=== PATIENT | female | born 1985 | race Caucasian/White ===

== ENCOUNTER 2018-07-04 09:31 | Emergency (ER) | payer OTHER ==
[~2018-07-04] VITALS: Ht 152.4 cm; Wt 81.6 kg
[~2018-07-04 09:31] MED LIST: AMOX500C PO; CYCL10TA2 PO; FLUC150T PO; LEVO1TAB PO; OMEP40CA2 PO; OXYC5TAB95 PO; PRED20TA PO
[2018-07-04 10:19] VITALS: BP 139/97
[2018-07-04] MEDS ORDERED: HYDROcodone/APAP 5/325MG 1 TAB TABLET PO ONE (10:30)
--- NOTE | 2018-07-04 10:55 | RAD ---
Examination: 3 views of the left foot HISTORY: History of pain in the left foot laterally COMPARISON: Ankle radiograph from 08/08/2014 FINDINGS: The alignment of the tarsal bones, tarsometatarsal joints, metatarsophalangeal joints, interphalangeal grossly appears unremarkable. Bony irregularity of the talus is similar to prior exam. Mild soft tissue prominence identified dorsal to the distal metatarsal region best seen on the lateral view. IMPRESSION: 1. No acute osseous findings. Bony irregularity of the talus similar to prior exam. 2. Mild soft tissue prominence identified dorsal to the distal metatarsal region best seen on the lateral view, nonspecific. Electronically signed by: Nile Thompson MD (07/04/2018 10:52 AM) [id number]
[2018-07-04] MEDS ORDERED: IBUP-1007 PO (11:03)
--- NOTE | 2018-07-04 11:07 | PHYS DOC ---
Past Medical History Past Medical History: Other Additional Past Medical Histor: MALIGNANT HYPERTHERMIA Past Surgical History: Cholecystectomy, , Tonsillectomy Additional Past Surgical Histo: L. FOOT SURGERY Alcohol Use: Occasionally Drug Use: None Adult General Chief Complaint Chief Complaint: FOOT INJURY PAIN HPI HPI Patient is a 33 year old female presenting with left lateral foot pain she woke up with this no trauma that she knows of she does have a history of chronic ankle pain secondary to arthrygosis. She did have a Achilles tendon repair couple years back. She says she has not had pain like this recently although she did have this very similar pain a few years back prior to her Achilles tendon repair she said she had multiple small tears there. No fever no trauma no other symptoms. Review of Systems Review of Systems Constitutional: Denies fever or chills [] Eyes: Denies change in visual acuity, redness, or eye pain [] Patient denies any pain above the mid harris All other systems were reviewed and found to be within normal limits, except as documented in this note. Current Medications Current Medications Current Medications Medications (Trade) Dose Ordered Sig/Mil Start Time Stop Time Status Last Admin Dose Admin Acetaminophen/ Hydrocodone Bitart (Lortab 5/325) 2 tab 1X ONCE 07/04/18 10:30 07/04/18 10:31 DC 07/04/18 10:28 2 TAB Allergies Allergies Allergies Coded Allergies Type Severity Reaction Last Updated Verified Sulfa (Sulfonamide Antibiotics) Allergy Unknown 09/10/17 Yes Physical Exam Physical Exam Constitutional: Well developed, well nourished, no acute distress, non-toxic appearance. [] HENT: Normocephalic, atraumatic, bilateral external ears normal, oropharynx moist, no oral exudates, nose normal. [] Eyes: PERRLA, EOMI, conjunctiva normal, no discharge. [] Neck: Normal range of motion, no tenderness, supple, no stridor. [] Pulmonary: Normal respiratory effort no increased work of breathing no obvious chest wall trauma Abdomen: Bowel sounds normal, soft, no tenderness, no masses, no pulsatile masses. [] Skin: Warm, dry, no erythema, no rash. [] Back: No tenderness, no CVA tenderness. [] Extremities: There is mild tenderness to palpation noted over the ASIS the fifth metatarsal no erythema no induration minimal to no swelling noted. There is some sort of chronic appearing hypoplastic ankles. Pedal pulses intact in the affected extremity sensation is intact Neurologic: Alert and oriented X 3, normal motor function, normal sensory function, no focal deficits noted. [] Psychologic: Affect normal, judgement normal, mood normal. [] Current Patient Data Vital Signs Vital Signs Date Time Temp Pulse Resp B/P (MAP) Pulse Ox O2 Delivery O2 Flow Rate FiO2 07/04/18 10:19 98.4 75 20 139/97 (111) 97 Room Air 98.4 EKG EKG [] Radiology/Procedures Radiology/Procedures [] Impressions: IMPRESSION: 1. No acute osseous findings. Bony irregularity of the talus similar to prior exam. 2. Mild soft tissue prominence identified dorsal to the distal metatarsal region best seen on the lateral view, nonspecific. Electronically signed by: Nile Thompson MD (07/04/2018 10:52 AM) [id number] Course & Med Decision Making Course & Med Decision Making Pertinent Labs and Imaging studies reviewed. (See chart for details) []33-year-old female presenting with foot/ankle pain. It appears to be mostly over the lateral fifth metatarsal no infection normal pulse x-ray was read as negative acute physical component of chronic pain but have she sprained her ankle and just didn't realize it. Prescription for Motrin was provided ice rest return precautions discussed including for no improvement or any fever. Dragon Disclaimer Yanion Disclaimer This electronic medical record was generated, in whole or in part, using a voice recognition dictation system. Departure Departure Impression: Primary Impression: Ankle pain, left Disposition: 01 HOME, SELF-CARE Condition: IMPROVED Patient Instructions: Foot Sprain-Brief Additional Instructions: it is not clear what is causing your pain. there is no evidence of infection broken bone or blood clot. please see doctor if not improving. Scripts Ibuprofen (IBUPROFEN) 600 Mg Tablet 600 MG PO PRN Q6HRS PRN for PAIN, #20 TAB take with food or milk Prov: CHERRY SANON MD 07/04/18 CHERRY SANON MD Jul 04, 2018 11:07
== END 2018-07-04 11:26 | disposition home or self-care (01) ==
LOC: ER 09:31
DX: M79.672 Pain in left foot (principal); Z98.890 Other specified postprocedural states; Z88.2 Allergy status to sulfonamides
CPT/HCPCS: 73630; 99284

== ENCOUNTER 2018-12-05 16:02 | Emergency (ER) | payer OTHER ==
[~2018-12-05] VITALS: Ht 152.4 cm; Wt 68.0 kg
[~2018-12-05 16:02] MED LIST changes: +IBUP-1007 PO; +OXYC5TAB4 PO; -OXYC5TAB95 PO
[2018-12-05 16:05] VITALS: BP 124/71
[2018-12-05 17:03] LABS: INFLUENZA A PATIENT NEGATIVE (NEGATIVE); INFLUENZA B PATIENT NEGATIVE (NEGATIVE)
[2018-12-05 17:10] LABS: MONONUCLEOSIS PATIENT NEGATIVE (NEGATIVE)
[2018-12-05 17:17] LABS: BILIRUBIN,URINE SMALL (NEG); CLARITY,URINE CLEAR; COLOR,URINE YELLOW; NITRITE,URINE NEGATIVE (NEG); PH,URINE 5.5; PROTEIN,URINE NEGATIVE (NEG-TRACE); UROBILINOGEN,URINE 0.2 mg/dL (0.2 mg/dL)
--- NOTE | 2018-12-05 17:23 | EKG ---
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
[2018-12-05 17:25] LABS: BACTERIA,URINE MODERATE /HPF (0-FEW); RBC,URINE 0 /HPF (0-2); SQUAMOUS EPITHELIAL CELL,UR MANY /LPF
[2018-12-05] MEDS ORDERED: NITR100C62 PO (17:36)
--- NOTE | 2018-12-05 17:37 | PHYS DOC ---
Past Medical History Past Medical History: Other Additional Past Medical Histor: MALIGNANT HYPERTHERMIA Past Surgical History: Cholecystectomy, , Tonsillectomy Additional Past Surgical Histo: L. FOOT SURGERY Alcohol Use: Occasionally Drug Use: Marijuana Social History Narrative: last use 3 days ago Adult General Chief Complaint Chief Complaint: SORE THROAT HPI HPI Patient is a 33 year old [f__sex] who presents with [] Review of Systems Review of Systems Constitutional: Denies fever or chills [] Eyes: Denies change in visual acuity, redness, or eye pain [] HENT: Denies nasal congestion or sore throat [] Respiratory: Denies cough or shortness of breath [] Cardiovascular: No additional information not addressed in HPI [] GI: Denies abdominal pain, nausea, vomiting, bloody stools or diarrhea [] : Denies dysuria or hematuria [] Musculoskeletal: Denies back pain or joint pain [] Integument: Denies rash or skin lesions [] Neurologic: Denies headache, focal weakness or sensory changes [] Endocrine: Denies polyuria or polydipsia [] All other systems were reviewed and found to be within normal limits, except as documented in this note. Current Medications Current Medications Current Medications Medications (Trade) Dose Ordered Sig/Mil Start Time Stop Time Status Last Admin Dose Admin Ketorolac Tromethamine (Toradol Im) 60 mg 1X ONCE 12/05/18 18:00 12/05/18 18:01 Allergies Allergies Allergies Coded Allergies Type Severity Reaction Last Updated Verified Sulfa (Sulfonamide Antibiotics) Allergy Unknown 09/10/17 Yes Physical Exam Physical Exam Constitutional: Well developed, well nourished, no acute distress, non-toxic appearance. [] HENT: Normocephalic, atraumatic, bilateral external ears normal, oropharynx moist, no oral exudates, nose normal. [] Eyes: PERRLA, EOMI, conjunctiva normal, no discharge. [] Neck: Normal range of motion, no tenderness, supple, no stridor. [] Cardiovascular:Heart rate regular rhythm, no murmur [] Lungs & Thorax: Bilateral breath sounds clear to auscultation [] Abdomen: Bowel sounds normal, soft, no tenderness, no masses, no pulsatile masses. [] Skin: Warm, dry, no erythema, no rash. [] Back: No tenderness, no CVA tenderness. [] Extremities: No tenderness, no cyanosis, no clubbing, ROM intact, no edema. [] Neurologic: Alert and oriented X 3, normal motor function, normal sensory function, no focal deficits noted. [] Psychologic: Affect normal, judgement normal, mood normal. [] Current Patient Data Vital Signs Vital Signs Date Time Temp Pulse Resp B/P (MAP) Pulse Ox O2 Delivery O2 Flow Rate FiO2 12/05/18 16:05 99.4 101 16 124/71 (88) 97 Room Air 99.4 Lab Values Laboratory Tests Test 12/05/18 16:25 12/05/18 16:30 12/05/18 16:50 12/05/18 17:05 Influenza Type A Antigen Negative (NEGATIVE) Influenza Type B Antigen Negative (NEGATIVE) Urine Collection Type Unknown Urine Color Yellow Urine Clarity Clear Urine pH 5.5 Urine Specific [place] >=1.030 Urine Protein Negative mg/dL (NEG-TRACE) Urine Glucose (UA) Negative mg/dL (NEG) Urine Ketones (Stick) Negative mg/dL (NEG) Urine Blood Negative (NEG) Urine Nitrite Negative (NEG) Urine Bilirubin Small (NEG) Urine Urobilinogen Dipstick 0.2 mg/dL (0.2 mg/dL) Urine Leukocyte Esterase Trace (NEG) Urine RBC 0 /HPF (0-2) Urine WBC 1-4 /HPF (0-4) Urine Squamous Epithelial Cells Many /LPF Urine Bacteria Moderate /HPF (0-FEW) Urine Mucus Marked /LPF Heterophil Agglutinins Negative (NEGATIVE) POC Urine HCG, Qualitative Hcg negative (Negative) EKG EKG [] Radiology/Procedures Radiology/Procedures [] Course & Med Decision Making Course & Med Decision Making Pertinent Labs and Imaging studies reviewed. (See chart for details) [] Dragon Disclaimer Dragon Disclaimer This electronic medical record was generated, in whole or in part, using a voice recognition dictation system. Departure Departure Impression: Primary Impression: UTI (urinary tract infection) Additional Impression: URI (upper respiratory infection) Disposition: 01 HOME, SELF-CARE Condition: STABLE Referrals: RENETTA MOLINA MD (PCP) Patient Instructions: Upper Respiratory Infection, Adult, Urinary Tract Infection Additional Instructions: Take the medication as directed. Increase fluids and rest. Follow-up with your primary care provider in one week for urine recheck. You may use ibuprofen or Tylenol for pain. Scripts Nitrofurantoin Monohyd/M-Cryst (MACROBID 100 MG CAPSULE) 100 Mg Capsule 1 CAP PO BID for UTI, #14 CAP Prov: JEWEL العراقي APRN 12/05/18 Problem Qualifiers JEWEL العراقي APRN Dec 05, 2018 17:37
[2018-12-05] MEDS: KETOROLAC 60 MG/2 ML VIAL. IM ONE (17:38)
== END 2018-12-05 17:51 | disposition home or self-care (01) ==
LOC: ER 16:02
DX: J06.9 Acute upper respiratory infection, unspecified (principal); N39.0 Urinary tract infection, site not specified; Z90.49 Acquired absence of other specified parts of digestive tract; Z90.89 Acquired absence of other organs; Z98.890 Other specified postprocedural states; Z88.2 Allergy status to sulfonamides
CPT/HCPCS: 81001; 81025; 86308; 87086; 87804; 87880; 93005; 96372; 99284; J1885

== ENCOUNTER → 2020-01-08 | Outpatient (CLI) | payer MEDICAID ==
[~2020-01-08] MED LIST changes: +NITR100C62 PO
--- NOTE | 2020-01-08 15:43 | RAD ---
EXAM: First Trimester OB Ultrasound INDICATION: Encounter for supervision of normal first trimester TECHNIQUE: Real-time first trimester obstetrical ultrasound was performed with permanent freeze-frame documentation. Transabdominal and endovaginal approaches were utilized. COMPARISON: None. FINDINGS: GESTATIONAL SAC: Gestational sac shape and amniotic fluid volume are within normal limits. Mean sac diameter of 0.6 cm. POLE: Not visualized not visualized CROWN RUMP LENGTH: Not visualized HEART RATE: Not visualized PLACENTA: Too early to adequately assess. MATERNAL UTERUS: Uterus measures 8.6 x 4.8 x 5.0 cm endovaginally. MATERNAL ADNEXA: Normal ovaries. Dominant follicle in the right ovary measuring 1.6 x 1.1 x 1.4 cm. The right ovary measures 2.9 x 2.0 x 3.3 cm and the left ovary measures 2.2 x 1.4 x 2.5 cm. Trace pelvic free fluid. AGE/DATES: Gestational Age by LMP: 5 weeks 5 days Gestational Age by US: 5 weeks 2 days EDC by LMP: September 04, 2020 EDC by US: September 07, 2020 IMPRESSION: Early first trimester OB ultrasound, too soon to assess viability. No pole identified currently. Recommend correlation with serial hCG measurements and follow-up ultrasound. Estimated gestational age of 5 weeks 2 days and EDC of September 07, 2020. Electronically signed by: Shorty Billings MD (01/08/2020 3:40 PM) [id number]
== END | disposition home or self-care (01) ==
LOC: US 08:57
PROVIDERS: ATTEND Obstetrics & Gynecology
DX: Z34.91 Encounter for supervision of normal pregnancy, unspecified, first trimester (principal); Z3A.01 Less than 8 weeks gestation of pregnancy
CPT/HCPCS: 76801; 76817

== ENCOUNTER → 2020-01-14 | Outpatient (CLI) | payer MEDICAID ==
--- NOTE | 2020-01-14 10:09 | RAD ---
Examination: BREAST RIGHT History: The patient reports that the referring physician palpated an abnormality involving the right breast upper inner quadrant. The patient denies being able to locate a palpable abnormality in this region. Comparison/Correlation: None Findings: Ultrasound imaging of the right upper inner quadrant was performed. Ultrasound imaging of the right axilla was performed. Benign-appearing right axillary lymph nodes are. At the right breast 1:00 position 6 cm from the nipple, there is a 0.5 cm x 0.4 cm x 0.2 cm tall well-circumscribed structure with internal echoes. No flow within it. There is no palpable abnormality upon physical examination by myself at the right upper inner quadrant at the site of concern reported by the patient. Impression: BI-RADS Category 3-probably benign. There is a solitary complicated cyst present. Six-month follow-up ultrasound to assess stability is recommended. No definite suspicious mass. Clinical management of the reported palpable abnormalities recommended. Baseline mammography was discussed with patient. The patient reports being currently . She preferred to defer screening mammographic exam until after childbirth. Electronically signed by: Yordy Petit MD (01/14/2020 10:06 AM) [id number]
== END | disposition home or self-care (01) ==
LOC: US 09:21
PROVIDERS: ATTEND Family Medicine
DX: O92.29 Other disorders of breast associated with pregnancy and the puerperium (principal); Z3A.01 Less than 8 weeks gestation of pregnancy
CPT/HCPCS: 76641

== ENCOUNTER 2020-03-14 12:42 | Emergency (ER) | payer MEDICAID ==
[~2020-03-14] VITALS: Ht 152.4 cm; Wt 61.4 kg
[2020-03-14 13:00] VITALS: BP 124/75
[2020-03-14] MEDS ORDERED: IV NORMAL SALINE 1000ML BAG 1,000 ML IV ONE (13:15)
--- NOTE | 2020-03-14 13:20 | PHYS DOC ---
Past Medical History Past Medical History: Other Additional Past Medical Histor: MALIGNANT HYPERTHERMIA Past Surgical History: Cholecystectomy, , Tonsillectomy Additional Past Surgical Histo: L. FOOT SURGERY Smoking Status: Current Every Day Smoker Alcohol Use: Occasionally Drug Use: Marijuana General Adult EDM: Chief Complaint: LOSS OF CONSCIOUSNESS HPI: HPI: Patient is a 35-year-old female who states she has had 2 near syncopal episodes over the last 12 hours or so. She states the first 1 was at about midnight last night when she was walking through her how she felt nauseous and warm all over and then went down as if she was going to pass out. She had another very similar episode this morning so she came to the emergency department to be evaluated. She denies any chest pain shortness of breath or dyspnea on exertion. She has not had any palpitations. She states this is never really happened before. She denies any headache or lateralizing neurologic weakness. [] Review of Systems: Review of Systems: Constitutional: Denies fever or chills. [] Eyes: Denies change in visual acuity. [] HENT: Denies nasal congestion or sore throat. [] Respiratory: Denies cough or shortness of breath. [] Cardiovascular: Denies chest pain or edema. [] GI: Denies abdominal pain, nausea, vomiting, bloody stools or diarrhea. [] : Denies dysuria. [] Musculoskeletal: Denies back pain or joint pain. [] Integument: Denies rash. [] Neurologic: Denies headache, focal weakness or sensory changes. [] Endocrine: Denies polyuria or polydipsia. [] Lymphatic: Denies swollen glands. [] Psychiatric: Reports anxiety [] Heart Score: Risk Factors: Risk Factors: DM, Current or recent (<one month) smoker, HTN, HLP, family history of CAD, obesity. Risk Scores: Score 0 - 3: 2.5% MACE over next 6 weeks - Discharge Home Score 4 - 6: 20.3% MACE over next 6 weeks - Admit for Clinical Observation Score 7 - 10: 72.7% MACE over next 6 weeks - Early Invasive Strategies Current Medications: Current Medications Medications (Trade) Dose Ordered Sig/Mil Start Time Stop Time Status Last Admin Dose Admin Sodium Chloride 1,000 ml @ 1,000 mls/hr 1X ONCE 03/14/20 13:15 03/14/20 14:14 UNV Allergies: Allergies: Allergies Coded Allergies Type Severity Reaction Last Updated Verified Sulfa (Sulfonamide Antibiotics) Allergy Unknown 09/10/17 Yes Physical Exam: PE: Constitutional: Well developed, well nourished, no acute distress, non-toxic appearance. [] HENT: Normocephalic, atraumatic, bilateral external ears normal, oropharynx moist, no oral exudates, nose normal. [] Eyes: PERRLA, EOMI, conjunctiva normal, no discharge. [] Neck: Normal range of motion, no tenderness, supple, no stridor. [] Cardiovascular:Heart rate regular rhythm, no murmur [] Lungs & Thorax: Bilateral breath sounds clear to auscultation [] Abdomen: Bowel sounds normal, soft, no tenderness, no masses, no pulsatile ma sses. [] Skin: Warm, dry, no erythema, no rash. [] Back: No tenderness, no CVA tenderness. [] Extremities: No tenderness, no cyanosis, no clubbing, ROM intact, no edema. [] Neurologic: Alert and oriented X 3, normal motor function, normal sensory function, no focal deficits noted. [] Psychologic: Appears anxious [] Current Patient Data: Labs: Laboratory Tests Test 03/14/20 13:04 POC Urine HCG, Qualitative Hcg positive (Negative) EKG: EKG: [EKG: Normal sinus rhythm rate of [address]-T changes] Radiology/Procedures: Radiology/Procedures: [] Course & Med Decision Making: Course & Med Decision Making Pertinent Labs and Imaging studies reviewed. (See chart for details) [] Orthostatic blood pressures are normal Dragon Disclaimer: Zoe Disclaimer: This electronic medical record was generated, in whole or in part, using a voice recognition dictation system. Departure Departure Impression: Primary Impression: Urinary tract infection Qualified Codes: N30.00 - Acute cystitis without hematuria Additional Impression: Near syncope Disposition: 01 HOME, SELF-CARE Condition: STABLE Referrals: RENETTA MOLINA MD (PCP) Patient Instructions: Near-Syncope, Urinary Tract Infection Additional Instructions: Take medication as directed. Return to the emergency department with any new or concerning symptoms Scripts Nitrofurantoin Monohyd/M-Cryst (MACROBID 100 MG CAPSULE) 100 Mg Capsule 1 CAP PO BID for UTI, #10 CAP Prov: FREDA CAMPOS DO 03/14/20 FREDA CAMPOS DO March 14, 2020 13:20
[2020-03-14 13:54] LABS: CLARITY,URINE CLOUDY; COLOR,URINE YELLOW
[2020-03-14 13:55] LABS: BILIRUBIN,URINE SMALL (NEG); NITRITE,URINE NEGATIVE (NEG); PROTEIN,URINE 30 mg/dL (NEG-TRACE)
[2020-03-14 13:56] LABS: SQUAMOUS EPITHELIAL CELL,UR MOD /LPF
[2020-03-14 13:56] LABS: BASO # 0.1 x10^3/uL (0.0-0.2); BASO % 0 % (0-3); EOS # 0.1 x10^3/uL (0.0-0.7); EOS % 1 % (0-3); HEMATOCRIT 41.4 % (36.0-47.0); HEMOGLOBIN 14.3 g/dL (12.0-15.5); LYMPH # 2.8 x10^3/uL (1.0-4.8); LYMPH % 18 % (24-48); MEAN CORPUSCULAR HEMOGLOBIN 31 pg (25-35); MEAN CORPUSCULAR HGB CONC 35 g/dL (31-37); MEAN CORPUSCULAR VOLUME 90 fL (79-100); MONO # 0.6 x10^3/uL (0.0-1.1); MONO % 4 % (0-9); NEUT # 12.3 x10^3/uL (1.8-7.7); NEUT % 77 % (31-73); PLATELET COUNT 281 x10^3/uL (140-400); RED BLOOD COUNT 4.58 x10^6/uL (3.50-5.40); RED CELL DISTRIBUTION WIDTH 12.9 % (11.5-14.5); WHITE BLOOD COUNT 15.9 x10^3/uL (4.0-11.0)
[2020-03-14 13:57] LABS: BACTERIA,URINE FEW /HPF (0-FEW)
[2020-03-14 13:59] LABS: BARBITURATES NEG (NEG); BENZODIAZEPINES NEG (NEG); CANNABINOIDS POS (NEG); COCAINE NEG (NEG); METHADONE NEG (NEG); OPIATES NEG (NEG); PHENCYCLIDINE NEG (NEG)
[2020-03-14 14:05] LABS: AMPHETAMINE/METHAMPHETAMINE NEG (NEG)
[2020-03-14 14:09] LABS: CALCIUM 8.7 mg/dL (8.5-10.1); CREATININE 0.7 mg/dL (0.6-1.0); GFR 94.2; POTASSIUM 3.6 mmol/L (3.5-5.1)
[2020-03-14 14:16] LABS: ALBUMIN 3.5 g/dL (3.4-5.0); ALBUMIN/GLOBULIN RATIO 0.8 (1.0-1.7); TOTAL BILIRUBIN 0.3 mg/dL (0.2-1.0); TOTAL PROTEIN 7.9 g/dL (6.4-8.2)
[2020-03-14] MEDS ORDERED: NITR100C62 PO (14:20)
--- NOTE | 2020-03-15 07:01 | EKG ---
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
== END 2020-03-14 14:30 | disposition home or self-care (01) ==
LOC: ER 12:42
DX: O99.331 Smoking (tobacco) complicating pregnancy, first trimester (principal); O23.41 Unspecified infection of urinary tract in pregnancy, first trimester; R55 Syncope and collapse; R11.0 Nausea; F17.200 Nicotine dependence, unspecified, uncomplicated; F12.90 Cannabis use, unspecified, uncomplicated; Z88.2 Allergy status to sulfonamides; Z98.890 Other specified postprocedural states; Z90.49 Acquired absence of other specified parts of digestive tract
CPT/HCPCS: 36415; 80053; 80307; 81001; 81025; 83735; 84443; 85025; 87086; 93005; 96360; 99284; G0480; J7030

== ENCOUNTER → 2020-05-04 | Outpatient (CLI) | payer MEDICAID ==
--- NOTE | 2020-05-04 17:37 | RAD ---
OB ULTRASOUND, > 14 WEEKS Clinical Indication: ADVANCED MATERNAL AGE; SECOND TRIMESTER US / Spl. Instructions: / History: Comparison: Obstetric ultrasound, January 08, 2020. Technique: Multiple grayscale images, color Doppler, and M-mode images of the uterus are obtained. Findings: There is a single intrauterine gestation in variable presentation. The placenta is posterior in location without evidence of placenta previa. The amount of amniotic fluid appears appropriate. Amniotic fluid index is 11.4 cm. Cervical length is 4.2 cm. Biometrical data: BPD = 4.9 cm for 20 weeks 5 days. HC = 18.7 cm for 21 weeks 0 days. AC = 17 cm for 22 weeks 0 days. FL = 3.9 cm for 22 weeks 4 days. HC/AC ratio = 1.10. Overall, the estimated sonographic gestational age is 21 weeks and 4 days for an estimated date of delivery of September 10, 2020. The estimated date of delivery provided by the last menstrual period is September 04, 2020. Estimated weight is 471 +/- 70 grams. A 4 chamber heart is identified with positive cardiac activity. The estimated heart rate is 160 beats per minute. Bilateral lower extremities are identified. Upper extremities are incompletely visualized. There is a three-vessel cord with cord insertion visualized. stomach and urinary bladder are identified. Both kidneys are partially seen. The visualized spine and brain are unremarkable. The face is incompletely visualized. No obvious anatomic abnormalities are identified. Impression: Single live intrauterine gestation with estimated sonographic gestational age of 21 weeks and 4 days. Electronically signed by: Pal Hahn MD (05/04/2020 5:34 PM) [id number]
== END | disposition home or self-care (01) ==
LOC: US 11:55
PROVIDERS: ATTEND Obstetrics & Gynecology
DX: O09.522 Supervision of elderly multigravida, second trimester (principal); Z3A.21 21 weeks gestation of pregnancy
CPT/HCPCS: 76805

== ENCOUNTER 2020-06-06 07:14 | Observation (INO) | payer MEDICAID ==
[2020-06-06] MEDS ORDERED: IV RINGERS,LACTATED 1000ML 1,000 ML IV SCH (07:37)
[2020-06-06 09:05] LABS: BILIRUBIN,URINE NEGATIVE (NEG); CLARITY,URINE CLEAR; COLOR,URINE YELLOW; NITRITE,URINE NEGATIVE (NEG); PROTEIN,URINE NEGATIVE (NEG-TRACE); UROBILINOGEN,URINE 0.2 mg/dL (0.2 mg/dL)
[2020-06-06 09:16] LABS: SQUAMOUS EPITHELIAL CELL,UR MOD /LPF
[2020-06-06 09:17] LABS: BACTERIA,URINE FEW /HPF (0-FEW); RBC,URINE 0 /HPF (0-2); WBC,URINE 0 /HPF (0-4)
== END 2020-06-06 11:10 | disposition home or self-care (01) ==
LOC: 3 SO LND 07:14
PROVIDERS: ADMIT Obstetrics & Gynecology; ATTEND Obstetrics & Gynecology
DX: O62.9 Abnormality of forces of labor, unspecified (principal); O21.2 Late vomiting of pregnancy; O23.42 Unspecified infection of urinary tract in pregnancy, second trimester; R10.9 Unspecified abdominal pain; Z88.2 Allergy status to sulfonamides; Z3A.26 26 weeks gestation of pregnancy
CPT/HCPCS: 81001; G0378; G0379; J7120

== ENCOUNTER 2020-06-30 22:45 | Observation (INO) | payer MEDICAID ==
[2020-06-30] MEDS ORDERED: ACETAMINOPHEN 325 MG TABLET. PO PRN (23:00)
[2020-06-30] MEDS ORDERED: IV RINGERS,LACTATED 1000ML 1,000 ML IV PRN (23:00)
[2020-06-30] MEDS ORDERED: MAG HYDROX/ALUMINUM HYD/SIMETH 30 ML ORAL.SUSP PO PRN (23:00)
[2020-06-30 23:07] LABS: BILIRUBIN,URINE NEGATIVE (NEG); CLARITY,URINE CLEAR; NITRITE,URINE NEGATIVE (NEG); PROTEIN,URINE NEGATIVE (NEG-TRACE); UROBILINOGEN,URINE 0.2 mg/dL (0.2 mg/dL)
[2020-06-30 23:12] LABS: BARBITURATES NEG (NEG); BENZODIAZEPINES NEG (NEG); CANNABINOIDS POS (NEG); COCAINE NEG (NEG); METHADONE NEG (NEG); OPIATES NEG (NEG); PHENCYCLIDINE NEG (NEG)
[2020-06-30 23:14] LABS: AMPHETAMINE/METHAMPHETAMINE NEG (NEG)
[2020-06-30] MEDS ORDERED: ONDANSETRON PF 4 MG/2 ML VIAL. IVP PRN (23:15)
[2020-06-30 23:19] LABS: COLOR,URINE STRAW
[2020-06-30 23:20] LABS: BACTERIA,URINE FEW /HPF (0-FEW); RBC,URINE 0 /HPF (0-2); SQUAMOUS EPITHELIAL CELL,UR MOD /LPF; WBC,URINE RARE /HPF (0-4)
[2020-07-01 00:40] VITALS: BP 114/66
[2020-07-01] MEDS ORDERED: TERBUTALINE 1 MG/ML VIAL. SQ ONE (01:00)
== END 2020-07-01 01:35 | disposition home or self-care (01) ==
LOC: 3 SO LND 22:45
PROVIDERS: ADMIT Obstetrics & Gynecology; ATTEND Obstetrics & Gynecology
DX: O62.9 Abnormality of forces of labor, unspecified (principal); O21.2 Late vomiting of pregnancy; Z3A.30 30 weeks gestation of pregnancy; Z79.899 Other long term (current) drug therapy
CPT/HCPCS: 80307; 81001; 96361; 96372; 96374; G0378; G0379; J2405; J3105; J7120

== ENCOUNTER → 2020-08-27 | Outpatient (CLI) | payer MEDICAID | LOC: SURGPAT 15:12 | PROVIDERS: ATTEND Obstetrics & Gynecology | DX: Z01.812 Encounter for preprocedural laboratory examination (principal); Z20.828 Contact with and (suspected) exposure to other viral communicable diseases | CPT/HCPCS: U0003 ==

== ENCOUNTER 2020-09-01 09:08 | Inpatient (IN) | payer MEDICAID ==
[~2020-09-01] VITALS: Ht 152.4 cm; Wt 64.0 kg
[2020-09-01 09:40] VITALS: BP 129/81
[2020-09-01] MEDS ORDERED: TERBUTALINE 1 MG/ML VIAL. SQ PRN (10:15)
[2020-09-01] MEDS ORDERED: OXYTOCIN 30 UNIT/500 ML PREMIX 500 ML IV PRN ×3 (10:15→13:00)
[2020-09-01] MEDS ORDERED: IBUPROFEN 400 MG TABLET. PO PRN (10:15)
[2020-09-01] MEDS ORDERED: CITRIC ACID/SODIUM CITRATE 30 ML SOLUTION. PO ONE (10:15)
[2020-09-01] MEDS ORDERED: LIDOCAINE 1% PF 30 ML VIAL. INJ PRN (10:15)
[2020-09-01] MEDS ORDERED: 0.9 % SODIUM CHLORIDE 10 ML DISP.SYRIN. IV PRN ×2 (10:15→13:00)
--- NOTE | 2020-09-01 10:21 | PDOC1 ---
[employer] H&P Date of Admission: Date of Admission: Sep 01, 2020 at 09:21 History of Present Illness: EDC: 09/05/20 LMP: 11/30/19 35y @ 39.3 by L=8 presents for scheduled C/S. The pt has had a relatively uncomplicated . PMH: Denies PSH: club foot surgery bilateral, tonsillectomy, L/S cholecystectomy, section x 2, bilateral Achilles tendon lengthening 2014 Meds: PNV All: Sulfa (Unknown), Inhaled Anesthesia (Malignant Hyperthermia) OBHx: 2 x TC/S SH: no tob, no EtOH FH: noncontributory Allergies: Coded Allergies: Sulfa (Sulfonamide Antibiotics) (Verified Allergy, Intermediate, 06/30/20) Physical Exam: Vital Signs: FHT: 130s +acels/no decels/mLTV [place]: quiet PE: GENERAL: No apparent distress. Alert and oriented. HEENT: Head normocephalic, atraumatic. NECK: Supple LUNGS: Clear to auscultation. HEART: RRR, S1, S2 present, pulses intact ABDOMEN: Soft, positive bowel sounds. EXTREMITIES: No cyanosis or edema. NEUROLOGIC: Normal speech, normal tone PSYCHIATRIC: Normal affect, normal mood. SKIN: No ulceration. Assessment & Plan: A/P 35y @ 39.3 by L=8 1.) AMA - Panorama low risk 2.) Prev C/S x 2 3.) Breast mass - BI-RADS, repeat u/s and mammo after delivery 4.) Tob use - discussed cessation 5.) Fetus cat I FHT 6.) Girl - Jerri 7.) TDAP given 06/16/20 8.) GERD 9.) GBS neg JUAN VALERIO MD Sep 01, 2020 10:21
[2020-09-01 10:29] LABS: BASO # 0.1 x10^3/uL (0.0-0.2); BASO % 0 % (0-3); EOS # 0.3 x10^3/uL (0.0-0.7); EOS % 2 % (0-3); HEMATOCRIT 33.7 % (36.0-47.0); HEMOGLOBIN 11.7 g/dL (12.0-15.5); LYMPH # 4.7 x10^3/uL (1.0-4.8); LYMPH % 31 % (24-48); MEAN CORPUSCULAR HEMOGLOBIN 31 pg (25-35); MEAN CORPUSCULAR HGB CONC 35 g/dL (31-37); MEAN CORPUSCULAR VOLUME 90 fL (79-100); MONO % 6 % (0-9); NEUT # 9.4 x10^3/uL (1.8-7.7); NEUT % 61 % (31-73); PLATELET COUNT 263 x10^3/uL (140-400); RED BLOOD COUNT 3.74 x10^6/uL (3.50-5.40); RED CELL DISTRIBUTION WIDTH 13.2 % (11.5-14.5); WHITE BLOOD COUNT 15.4 x10^3/uL (4.0-11.0)
[2020-09-01 10:31] LABS: BILIRUBIN,URINE NEGATIVE (NEG); CLARITY,URINE CLOUDY; COLOR,URINE YELLOW; NITRITE,URINE NEGATIVE (NEG); PROTEIN,URINE NEGATIVE (NEG-TRACE); UROBILINOGEN,URINE 0.2 mg/dL (0.2 mg/dL)
[2020-09-01 10:41] LABS: BACTERIA,URINE MODERATE /HPF (0-FEW); RBC,URINE OCC /HPF (0-2)
[2020-09-01] MEDS ORDERED: OXYTOCIN 10 UNIT/ML VIAL. ONE ×2 (11:27→12:50)
[2020-09-01] MEDS ORDERED: PHENYLEPHRINE in 0.9% NACL PF 1 MG/10 ML SYRINGE. IV ONE (11:27)
[2020-09-01] MEDS ORDERED: FAMOTIDINE 20 MG/2 ML VIAL ONE (11:27)
[2020-09-01] MEDS ORDERED: METOCLOPRAMIDE HCL 10 MG/2 ML VIAL. ONE (11:27)
[2020-09-01] MEDS ORDERED: ePHEDrine PF IN SALINE 50 MG/10 ML SYRINGE. IV ONE (11:27)
[2020-09-01] MEDS ORDERED: ONDANSETRON PF 4 MG/2 ML VIAL. ONE (11:28)
[2020-09-01] MEDS ORDERED: fentaNYL PF VIAL 100 MCG/2 ML VIAL ONE (11:28)
[2020-09-01] MEDS ORDERED: MORPHINE PF 10 MG/10 ML AMPUL. ONE (11:28)
[2020-09-01] MEDS: IV RINGERS,LACTATED 1000ML 1,000 ML IV SCH ×3 (11:36→22:01)
[2020-09-01] MEDS ORDERED: MMR per PROTOCOL. MC PRN (13:00)
[2020-09-01] MEDS ORDERED: BENZOCAINE 20% TOPICAL AEROSOL SPRAY 57GM CAN. TP PRN (13:00)
[2020-09-01] MEDS ORDERED: ACETAMINOPHEN 325 MG TABLET. PO PRN (13:00)
[2020-09-01] MEDS ORDERED: TDaP (Adacel) per PROTOCOL. MC PRN (13:00)
[2020-09-01] MEDS ORDERED: diphenhydrAMINE ORAL ELIXIR 12.5 MG/5 ML ML PO PRN (13:00)
--- NOTE | 2020-09-01 13:20 | PDOC4 ---
OPERATIVE NOTE: PreOp Dx: 1.) IUP @ 39.3 by L=8, 2.) Prev C/S x 2, 3.) AMA - Panorama low risk, 4.) Tob use, 5.) GERD PostOp Dx: same, 6.) breech Procedure: RLTCS Surgeon: Norma Valerio Anesthesia: Spinal EBL: 700 cc Fluids: 1000 cc UOP: 200 cc Complications: None Findings: viable female delivered at 1216. Wt 6lb 10oz. APGARS 8/9. Nml tubes and ovaries. Path: Cord blood, placenta JUAN VALERIO MD Sep 01, 2020 13:20
[2020-09-01] MEDS: KETOROLAC 30 MG/ML VIAL. IV PRN ×2 (13:50→22:02)
--- NOTE | 2020-09-01 13:57 | OP ---
DATE OF SURGERY: 09/01/2020 PREOPERATIVE DIAGNOSES: 1. Intrauterine at 39 weeks and 3 days by LMP, equal to 8-week ultrasound. 2. Previous section x 2. 3. Advanced maternal age with low risk panorama. 4. Tobacco use. 5. Gastroesophageal reflux disease. POSTOPERATIVE DIAGNOSES: 1. Intrauterine at 39 weeks and 3 days by LMP, equal to 8-week ultrasound. 2. Previous section x 2. 3. Advanced maternal age with low risk panorama. 4. Tobacco use. 5. Gastroesophageal reflux disease. 6. Breech. PROCEDURE: Repeat low transverse . SURGEON: Sharif Valerio MD ANESTHESIA: Spinal. ESTIMATED BLOOD LOSS: 700 mL. FLUIDS: 1000 mL. URINE OUTPUT: 200 mL. COMPLICATIONS: None. FINDINGS: Viable female delivered at 12:16, weighing 6 pounds 10 ounces with Apgars of 8 and 9. Normal tubes and ovaries noted. PATHOLOGY: Cord blood and placenta. DESCRIPTION OF PROCEDURE: The patient was taken to the operating room, where spinal anesthesia was placed without difficulty. The patient was prepped and draped in normal sterile fashion with a left lateral tilt. A Pfannenstiel skin incision was made through her previous incision and carried down to underlying layer of fascia. The fascia was then nicked in the midline. The fascial incision was then extended laterally with Negro scissors. Superior aspect of the fascial incision was then grasped with Arlene clamps, elevated and underlying rectus muscle was dissected off with the scalpel. Attention was then turned to the inferior aspect of the fascial incision, which was again grasped with Arlene clamps, elevated and the underlying rectus muscle was dissected off with Negro scissors. There was a diastasis noted where the rectus muscle on the left reach the midline, but the rectus muscle on the right was approximately 3 cm from the midline. This made identifying the peritoneum easily. The peritoneum was grasped with 2 hemostats and tented up. Metzenbaum scissors were used to enter the peritoneal cavity sharply. Digital examination of the peritoneal cavity revealed some omental adhesions, just above the peritoneal incision, but nothing significant below. At that point, the peritoneal incision was then extended superiorly and inferiorly with good visualization of the bladder with traction and countertraction. At that point, the Arthur ring was then placed into the abdomen to gain better visualization of the lower uterine segment. A bladder flap was then created with Metzenbaum scissors. The lower uterine segment was incised in transverse fashion with the scalpel. The incision was then extended with traction and countertraction. At that point, the infant's feet were then felt. They were then brought through the hysterotomy and delivered. At that point, the was then rotated to sacrum anterior. The infant was then delivered to the level of the scapula. At that point, the left arm was swept medially and delivered followed by the right arm, which was swept medially and delivered. At that point, the head was then flexed with the Mraahpukk-Dncowfl-Ksen maneuver and delivered. The cord was double clamped and cut, and was handed over to waiting coal grader. The placenta was then removed manually and the uterus was cleared of all clots and debris. Uterine incision was then repaired with #1 chromic in a running locked fashion. A second layer of the same suture was used to imbricate. At that point, the gutters were copiously irrigated and cleared of all clots and debris. The peritoneum was then reapproximated with 2-0 Vicryl in a running fashion. The muscle was then reapproximated with 2-0 Vicryl in a running fashion. The fascia was then closed with 0 Vicryl in a running fashion. The skin was then closed with 3-0 Monocryl in a subcuticular manner. The patient tolerated the procedure well. Sponge, laps, and needles were correct x 3. Two grams of Ancef were given prior to the incision. The patient tolerated the procedure well and was taken to the recovery room in stable condition. SHARIF VALERIO MD DR: ANTHONY/sonja JOB#: [id number] / [id number] NISH
[2020-09-01] MEDS ORDERED: PREN-48 PO (15:02)
[2020-09-01 16:20] VITALS: BP 119/66
[2020-09-01 17:00] VITALS: BP 118/67
[2020-09-01 17:25] VITALS: BP 122/72
[2020-09-01 20:00] VITALS: BP 119/62
[2020-09-02 00:50] VITALS: BP 132/59
[2020-09-02 04:00] VITALS: BP 121/49
[2020-09-02] MEDS: KETOROLAC 30 MG/ML VIAL. IV PRN (05:42)
[2020-09-02 07:38] LABS: HEMOGLOBIN 8.6 g/dL (12.0-15.5); RED BLOOD COUNT 2.79 x10^6/uL (3.50-5.40); WHITE BLOOD COUNT 15.4 x10^3/uL (4.0-11.0)
--- NOTE | 2020-09-02 08:24 | PDOC ---
OFFSET PRESS ASSISTANT PROGRESS NOTE Date of Service: DATE: 09/02/20 TIME: 08:23 Subjective: Pt with good pain control. Jabier PO. Voiding. Minimal lochia Objective: Vital Signs: Vital Signs Date Time Temp Pulse Resp B/P (MAP) Pulse Ox O2 Delivery O2 Flow Rate FiO2 09/01/20 09:40 98.3 67 18 129/81 (97) 98 Room Air 98.3 Vital Signs Date Time Temp Pulse Resp B/P (MAP) Pulse Ox O2 Delivery O2 Flow Rate FiO2 09/02/20 04:00 98.9 53 18 121/49 (73) 100 Room Air 98.9 Labs: Laboratory Tests Test 09/01/20 09:32 09/01/20 09:44 09/02/20 07:05 Urine Collection Type Unknown Urine Color Yellow Urine Clarity Cloudy Urine pH 7.0 (<5.0-8.0) Urine Specific [place] 1.015 (1.000-1.030) Urine Protein Negative mg/dL (NEG-TRACE) Urine Glucose (UA) Negative mg/dL (NEG) Urine Ketones (Stick) Negative mg/dL (NEG) Urine Blood Negative (NEG) Urine Nitrite Negative (NEG) Urine Bilirubin Negative (NEG) Urine Urobilinogen Dipstick 0.2 mg/dL (0.2 mg/dL) Urine Leukocyte Esterase Negative (NEG) Urine RBC Occ /HPF (0-2) Urine WBC 5-10 /HPF (0-4) Urine Squamous Epithelial Cells Many /LPF Urine Bacteria Moderate /HPF (0-FEW) White Blood Count 15.4 x10^3/uL (4.0-11.0) H 15.4 x10^3/uL (4.0-11.0) H Red Blood Count 3.74 x10^6/uL (3.50-5.40) 2.79 x10^6/uL (3.50-5.40) L Hemoglobin 11.7 g/dL (12.0-15.5) L 8.6 g/dL (12.0-15.5) L Hematocrit 33.7 % (36.0-47.0) L 25.0 % (36.0-47.0) L Mean Corpuscular Volume 90 fL (79-100) 90 fL (79-100) Mean Corpuscular Hemoglobin 31 pg (25-35) 31 pg (25-35) Mean Corpuscular Hemoglobin Concent 35 g/dL (31-37) 34 g/dL (31-37) Red Cell Distribution Width 13.2 % (11.5-14.5) 13.0 % (11.5-14.5) Platelet Count 263 x10^3/uL (140-400) 198 x10^3/uL (140-400) Neutrophils (%) (Auto) 61 % (31-73) Lymphocytes (%) (Auto) 31 % (24-48) Monocytes (%) (Auto) 6 % (0-9) Eosinophils (%) (Auto) 2 % (0-3) Basophils (%) (Auto) 0 % (0-3) Neutrophils # (Auto) 9.4 x10^3/uL (1.8-7.7) H Lymphocytes # (Auto) 4.7 x10^3/uL (1.0-4.8) Monocytes # (Auto) 1.0 x10^3/uL (0.0-1.1) Eosinophils # (Auto) 0.3 x10^3/uL (0.0-0.7) Basophils # (Auto) 0.1 x10^3/uL (0.0-0.2) Laboratory Tests 09/01/20 09:44 09/02/20 07:05 Laboratory Tests 09/02/20 07:05 Physical Exam: GENERAL: No apparent distress. Alert and oriented. HEENT: Head normocephalic, atraumatic. NECK: Supple LUNGS: Clear to auscultation. HEART: RRR, S1, S2 present, pulses intact ABDOMEN: Soft, positive bowel sounds. EXTREMITIES: No cyanosis or edema. NEUROLOGIC: Normal speech, normal tone PSYCHIATRIC: Normal affect, normal mood. SKIN: No ulceration. FFNT below umb Inc: dressing dry No C/C/E Assessment & Plan: A/P 35y POD #1 s/p RLTCS 1.) PO doing well 2.) Anemia Hgb 11.7 -> 8.6, on Fe 3.) Breast mass - BI-RADS, repeat u/s and mammo after delivery 4.) Tob use - discussed cessation 5.) TDAP given 06/16/20 6.) GERD 7.) Cont PO care JUAN VALERIO MD Sep 02, 2020 08:24
[2020-09-02] MEDS ORDERED: PRENATAL MULTIVITAMIN TABLET. PO SCH (09:00)
[2020-09-02] MEDS: MULTIVITAMIN with MINERAL TABLET. PO SCH (10:19)
[2020-09-02] MEDS: DOCUSATE SODIUM 100 MG CAPSULE. PO PRN ×2 (10:19→20:42)
[2020-09-02] MEDS: FERROUS SULFATE 325 MG TABLET. PO SCH ×2 (10:20→16:25)
[2020-09-02] MEDS: oxyCODONE/APAP 5/325 1 TAB TABLET PO PRN ×3 (10:21→20:41)
[2020-09-02 10:30] VITALS: BP 152/72
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
[2020-09-02] MEDS ORDERED: ONDANSETRON PF 4 MG/2 ML VIAL. IVP PRN (11:15)
[2020-09-02] MEDS ORDERED: SIMETHICONE 80 MG TAB.CHEW PO PRN (11:15)
[2020-09-02] MEDS ORDERED: ONDANSETRON ODT 4 MG TAB.RAPDIS. PO PRN (11:15)
[2020-09-02 18:25] VITALS: BP 125/66
[2020-09-02] MEDS: IBUPROFEN 400 MG TABLET. PO PRN (20:42)
[2020-09-02 22:17] VITALS: BP 139/84
[2020-09-03 00:59] VITALS: BP 122/59
[2020-09-03 04:51] VITALS: BP 144/80
[2020-09-03] MEDS: oxyCODONE/APAP 5/325 1 TAB TABLET PO PRN ×2 (04:59→09:03)
[2020-09-03] MEDS: IBUPROFEN 400 MG TABLET. PO PRN ×2 (05:02→14:06)
[2020-09-03] MEDS: MULTIVITAMIN with MINERAL TABLET. PO SCH (08:52)
[2020-09-03] MEDS: FERROUS SULFATE 325 MG TABLET. PO SCH (08:52)
--- NOTE | 2020-09-03 10:36 | PDOC ---
HYDROMETALLURGICAL ENGINEER PROGRESS NOTE Date of Service: DATE: 09/03/20 TIME: 10:35 Subjective: Pt with good pain control. Jabier PO. Voiding. Minimal lochia. Denies WATT, changes in vision, or abd pain Objective: Vital Signs: Vital Signs Date Time Temp Pulse Resp B/P (MAP) Pulse Ox O2 Delivery O2 Flow Rate FiO2 09/02/20 10:21 18 Room Air 09/02/20 10:30 99.3 61 152/72 (98) 100 99.3 Vital Signs Date Time Temp Pulse Resp B/P (MAP) Pulse Ox O2 Delivery O2 Flow Rate FiO2 09/03/20 09:03 18 Room Air 09/03/20 04:51 98.3 76 144/80 (101) 99 98.3 Physical Exam: GENERAL: No apparent distress. Alert and oriented. HEENT: Head normocephalic, atraumatic. NECK: Supple LUNGS: Clear to auscultation. HEART: RRR, S1, S2 present, pulses intact ABDOMEN: Soft, positive bowel sounds. EXTREMITIES: No cyanosis or edema. NEUROLOGIC: Normal speech, normal tone PSYCHIATRIC: Normal affect, normal mood. SKIN: No ulceration. FFNT [facility] No C/C/E Inc: C/D/I Assessment & Plan: A/P 35y POD #2 s/p RLTCS 1.) PO doing well 2.) Anemia Hgb 11.7 -> 8.6, on Fe 3.) A couple elevated BPs no s/s of preeclampsia 4.) Breast mass - BI-RADS, repeat u/s and mammo after delivery 5.) Tob use - discussed cessation 6.) TDAP given 06/16/20 7.) GERD 8.) D/C home JUAN VALERIO MD Sep 03, 2020 10:36
[2020-09-03] MEDS ORDERED: OXYC1TAB15 PO (10:39)
[2020-09-03] MEDS ORDERED: DOCU-109 PO (10:39)
[2020-09-03] MEDS ORDERED: IBUP-1060 PO (10:39)
[2020-09-03] MEDS ORDERED: FERR325T14 PO (10:39)
--- NOTE | 2020-09-03 10:57 | DS ---
DATE OF DISCHARGE: 09/03/2020 ADMISSION DIAGNOSES: 1. Intrauterine at 39 weeks and 3 days by LMP equal to 8-week ultrasound. 2. Previous section x 2. 3. Advanced maternal age. 4. Breast mass. 5. Tobacco use. 6. Gastroesophageal reflux disease. 7. GBS negative. DISCHARGE DIAGNOSES: 1. Intrauterine at 39 weeks and 3 days by LMP equal to 8-week ultrasound. 2. Previous section x 2. 3. Advanced maternal age. 4. Breast mass. 5. Tobacco use. 6. Gastroesophageal reflux disease. 7. GBS negative. PROCEDURE: Repeat lower transverse . BRIEF HOSPITAL COURSE: The patient is a 35-year-old 3, para 2-0-0-2, who presented to Labor and Delivery at 39 weeks and 3 days by LMP equal to 8-week ultrasound for a scheduled . The patient had a relatively uncomplicated . The patient underwent said procedure on 09/01/2020. By postoperative day #2, the patient was doing well and desired discharge home. Of note, the patient's hemoglobin on admission was found to be 11.7 and on postoperative day #1 was found to be 8.6. The patient remained without any signs or symptoms of anemia. DISCHARGE INSTRUCTIONS: The patient was told not to lift anything greater than 20 pounds, have pelvic rest for 6 weeks, not to drive on narcotics. The patient was to call if she had fevers, chills, nausea, vomiting, abdominal pain or any additional questions or concerns. FOLLOWUP APPOINTMENT: The patient was to follow up on 09/15/2020 at 1:30 p.m. for an incision check. DISCHARGE MEDICATIONS: The patient was given a prescription for Percocet 5, 10 pills, Motrin 800 mg 30 pills, ferrous sulfate 325 mg 30 pills and Colace 100 mg 30 pills. JUAN VALERIO MD DR: ANTHONY/sonja JOB#: [id number] / [id number]
[2020-09-03 11:08] VITALS: BP 136/55
--- NOTE | 2020-09-03 13:35 | NUR ---
Discharge instructions given to pt. Pt verbalized understanding. Pt discharged home.
[2020-09-03 14:30] VITALS: BP 142/74
== END 2020-09-03 14:50 | disposition home or self-care (01) | DRG 788 ==
LOC: SURG 09:08 → 3 SO LND 09:21 → EDSTATUS 11:30 → 3 NORTH 15:50
PROVIDERS: ADMIT Obstetrics & Gynecology; ATTEND Obstetrics & Gynecology
PROC: 10D00Z1 Extraction of Products of Conception, Low, Open Approach (ICD-10-PCS; principal; 2020-09-01)
DX: O34.211 Maternal care for low transverse scar from previous cesarean delivery (principal); O99.62 Diseases of the digestive system complicating childbirth; K21.9 Gastro-esophageal reflux disease without esophagitis; O92.29 Other disorders of breast associated with pregnancy and the puerperium; O99.892 Other specified diseases and conditions complicating childbirth; O99.02 Anemia complicating childbirth; D64.9 Anemia, unspecified; K66.0 Peritoneal adhesions (postprocedural) (postinfection); Z37.0 Single live birth; Z3A.39 39 weeks gestation of pregnancy; Z72.0 Tobacco use; Z88.2 Allergy status to sulfonamides
CPT/HCPCS: 36415; 81001; 85025; 85027; 86850; 86900; 86901; 87086; J0690; J1885; J2274; J2370; J2405; J2590; J2765; J3010; J3490; J7120; G0378